=== PATIENT | female | born 2000 | race Caucasian/White ===

== ENCOUNTER → 2021-03-19 | Outpatient (REF) ==
--- NOTE | 2021-03-19 11:07 | Diagnostic Imaging Report ---
INDICATION: Left hand injury. FINDINGS: Three views of the left hand show no fracture, dislocation, or other acute abnormalities. IMPRESSION: Negative left hand. Dictated by: Dictated on workstation # [id number]
== END ==
LOC: OCC 10:31
PROVIDERS: ATTEND Family Medicine
DX: S69.92XA Unspecified injury of left wrist, hand and finger(s), initial encounter (principal); X58.XXXA Exposure to other specified factors, initial encounter
CPT/HCPCS: 73130

== ENCOUNTER 2021-03-24 21:50 | Emergency (ER) | payer BC, OTHER | END 2021-03-24 22:47 | disposition left against medical advice (07) | LOC: EDUNIT# 21:50 → ER 21:54 | DX: B37.9 Candidiasis, unspecified (principal) ==